=== PATIENT | male | born 1995 | race Caucasian/White ===

== ENCOUNTER 2017-08-27 00:35 | Emergency (ER) | payer OTHER ==
[~2017-08-27] VITALS: Ht 180.3 cm; Wt 86.0 kg
[2017-08-27 00:52] VITALS: BP 156/73; PULSE 74; RESP 18; TEMP 99.4; O2SAT 100
[2017-08-27] MEDS ORDERED: IBUPROFEN 600 MG TAB PO ONE (01:30)
[2017-08-27] MEDS ORDERED: LIDOCAINE VISCOUS 2% SOLN 15 ML UDC SWISH-SWAL STA (02:01)
--- NOTE | 2017-08-27 02:03 | PD ---
HPI Chief Complaint: Cold / Flu Symptoms Time Seen by Provider: 01:16 Travel History International Travel<30 days: No Contact w/Intl Traveler<30days: No Traveled to known affect area: No History of Present Illness HPI Patient is a 21-year-old male with sore throat fever congestion and body aches for 1 day he has no sick contacts he did not take any medication to feel better he did not see another doctor for this complaint of localized severe throat pain on swallowing and some mild neck swelling to the glands PFSH Past Medical History Medical History: Denies Significant Hx Diminished Hearing: No Immunizations Current: Yes Past Surgical History Oral Surgery: Yes (WISDOM) Social History Alcohol Use: Yes (OCCASSIONALLY) Tobacco Use: No Substance Use: No Allergies-Medications (Allergen,Severity, Reaction): Coded Allergies: acetaminophen (Verified Adverse Reaction, Intermediate, Nausea/Vomiting, ) codeine (Verified Adverse Reaction, Intermediate, Nausea/Vomiting, 08/27/17) Reported Meds & Prescriptions Reported Meds & Active Scripts Active Pseudoephedrine ER 12 HR (Pseudoephedrine HCl) 120 Mg Tab 120 Mg PO BID Tussionex Pennkinetic Ext 12 HR Liq (Hydrocodone-Chlorpheniramine 12 HR Liq) 10- 8 Mg/5 Ml Susp 5 Ml PO Q12H PRN Magic Mouthwash Pediatric/Adult Liq (Lidocaine/Diphenhydr/Alum/Mg/Simeth) 60 Ml Susp 5 Ml SWISH-SWAL ACHS Each 5mL contains: Diphenydramine 4.5mg, Viscous Lidocaine 2% 10mg, Maalox Advanced Regular Strength 2.7ml Ibuprofen 600 Mg Tab 600 Mg PO Q6H PRN Amoxicillin 500 Mg Tab 500 Mg PO TID Review of Systems Except as stated in HPI: all other systems reviewed are Neg General / Constitutional: Positive: Fever, Chills HENT: Positive: Headaches, Sore Throat, Rhinorrhea, Congestion Musculoskeletal: Positive: Myalgias Physical Exam Narrative GENERAL: Patient has severely swollen tonsils bilateral with mild exudate SKIN: Warm and dry. HEAD: Atraumatic. Normocephalic. EYES: Pupils equal and round. No scleral icterus. No injection or drainage. ENT: No nasal bleeding or discharge. Mucous membranes pink and moist. Bilateral tonsils swollen with mild exudate edematous NECK: Trachea midline. No JVD. Bilateral lymphadenopathy neck submandibular nodes CARDIOVASCULAR: Regular rate and rhythm. RESPIRATORY: No accessory muscle use. Clear to auscultation. Breath sounds equal bilaterally. GASTROINTESTINAL: Abdomen soft, non-tender, nondistended. Hepatic and splenic margins not palpable. MUSCULOSKELETAL: Extremities without clubbing, cyanosis, or edema. No obvious deformities. NEUROLOGICAL: Awake and alert. No obvious cranial nerve deficits. Motor grossly within normal limits. Five out of 5 muscle strength in the arms and legs. Normal speech. PSYCHIATRIC: Appropriate mood and affect; insight and judgment normal. Data Data Last Documented VS Vital Signs Date Time Temp Pulse Resp B/P (MAP) Pulse Ox O2 Delivery O2 Flow Rate FiO2 08/27/17 00:52 99.4 74 18 156/73 (100) 100 Orders Orders Influenzae A/B Antigen (08/27/17 01:18) Group A Rapid Strep Screen (08/27/17 01:18) Ibuprofen (Motrin) (08/27/17 01:30) Al-Mag Hy-Si 40-40-4 Mg/Ml Liq (Mag-Al P (08/27/17 02:15) Diphenhydramine Liq (Benadryl Liq) (08/27/17 02:15) Lidocaine 2% Viscous (Xylocaine 2% Visco (08/27/17 02:01) Strep Culture (Group A) (08/27/17 01:30) Amoxicillin (Trimox) (08/27/17 02:45) Ed Discharge Order (08/27/17 02:56) MDM Medical Decision Making Medical Screen Exam Complete: Yes Emergency Medical Condition: Yes Differential Diagnosis Patient has upper respiratory infection which could be strep throat pharyngitis it could be influenza could be viral and OS could be pneumonia. bacterial tracheitis Narrative Course Flu swab and rapid strep are done bedside viscous lidocaine and Maalox Benadryl liquid gargle symptomatic treatment Diagnosis Primary Impression: Tonsillitis Patient Instructions: General Instructions, Tonsillitis (ED) Scripts Pseudoephedrine ER 12 HR (Pseudoephedrine ER 12 HR) 120 Mg Tab 120 MG PO BID for Decongestant, #20 TAB 0 Refills Prov: Cuate Vu MD 08/27/17 Hydrocodone-Chlorpheniramine 12 HR Liq (Tussionex Pennkinetic Ext 12 HR Liq) 10- 8 Mg/5 Ml Susp 5 ML PO Q12H Y for COUGH AND/OR COLD SYMPTOMS, #60 ML 0 Refills Prov: Cuate Vu MD 08/27/17 Rssabopwurvlhta-Nfmvunfzo-Klu-Alum-Simeth Liq (Magic Mouthwash Pediatric/Adult Liq) 60 Ml Susp 5 ML SWISH-SWAL ACHS for Mouth sores, #60 ML 0 Refills Each 5mL contains: Diphenydramine 4.5mg, Viscous Lidocaine 2% 10mg, Maalox Advanced Regular Strength 2.7ml Prov: Cuate Vu MD 08/27/17 Ibuprofen (Ibuprofen) 600 Mg Tab 600 MG PO Q6H Y for Pain/Inflammation, #40 TAB 0 Refills Prov: Cuate Vu MD 08/27/17 Amoxicillin (Amoxicillin) 500 Mg Tab 500 MG PO TID for Infection, #30 TAB 0 Refills Prov: Cuate Vu MD 08/27/17 Disposition: 01 DISCHARGE HOME Condition: Good Cuate Vu MD Aug 27, 2017 02:03
[2017-08-27] MEDS ORDERED: ALUMINUM/MAGNESIUM/SIMETH 30 ML CUP PO ONE (02:15)
[2017-08-27] MEDS ORDERED: diphenhydrAMINE HCL ELIXIR 12.5 MG/5 ML CUP PO ONE (02:15)
[2017-08-27] MEDS ORDERED: AMOXICILLIN (TRIHYDRATE) 500 MG CAP PO ONE (02:45)
[2017-08-27] MEDS ORDERED: IBUP-232 PO (02:53)
[2017-08-27] MEDS ORDERED: MAGICPED SWISH-SWAL (02:53)
[2017-08-27] MEDS ORDERED: AMOX500T PO (02:53)
[2017-08-27] MEDS ORDERED: TUSSSUS2 PO (02:54)
[2017-08-27] MEDS ORDERED: PSEU1TAB17 PO (02:58)
== END 2017-08-27 03:30 | disposition home or self-care (01) ==
LOC: NEPE 00:35
DX: J03.90 Acute tonsillitis, unspecified (principal); J06.9 Acute upper respiratory infection, unspecified; R51 Headache; Z88.6 Allergy status to analgesic agent; Z88.5 Allergy status to narcotic agent; Z79.899 Other long term (current) drug therapy
CPT/HCPCS: 87081; 87804; 87880; 99283